=== PATIENT | male | born 2000 | race Caucasian/White ===

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

== ENCOUNTER 2019-11-29 16:34 | Emergency (ER) | payer OTHER ==
[~2019-11-29] VITALS: Ht 167.6 cm; Wt 40.8 kg
[2019-11-29 16:53] VITALS: BP_SYST 132
--- NOTE | 2019-11-29 16:55 | NUR ---
Patient triaged and placed in waiting room. VSS and patient appears in no acute distress at this time. Accompanied by mother , awaiting available bed, and MD notified of need for MSE.
--- NOTE | 2019-11-29 19:11 | NUR ---
Patient to ER bed H2 to gown for evaluation. Side rails up.
[2019-11-29] MEDS ORDERED: NACL 0.9% 1,000 ML IV ONE (19:16)
[2019-11-29] MEDS ORDERED: KETOROLAC TROMETHAMINE 30 MG VIAL IVP ONE (19:30)
[2019-11-29 19:50] LABS: HEMATOCRIT 40.1 % (36-54); HEMOGLOBIN 13.1 g/dL (14.0-18.0); MEAN CORPUSCULAR HEMOGLOBIN 29 pg (27-31); MEAN CORPUSCULAR HGB CONC 33 % (32-36); MEAN CORPUSCULAR VOLUME 88 fL (79.0-98.0); PLATELET COUNT (AUTO) 586 K/uL (130-430); RED BLOOD CELL COUNT(AUTO) 4.58 MIL/uL (4.2-6.2); RED CELL DISTRIBUTION WIDTH 14.3 % (9.0-15.0); WHITE BLOOD COUNT (AUTO) 17.1 K/uL (4.5-11.0)
--- NOTE | 2019-11-29 20:00 | NUR ---
Dr. Branch bedside for pt eval
[2019-11-29 20:06] LABS: CALCIUM 8.9 mg/dL (8.4-11.0); CREATININE 0.92 mg/dL (0.55-1.30); POTASSIUM 3.8 mmol/L (3.5-5.1)
[2019-11-29 20:08] LABS: BAND % (MANUAL) 4 % (0-6); BASOPHILS % (MANUAL) 0 % (0-2); EOSINOPHILS % (MANUAL) 1 % (0-7); LYMPHOCYTES % (MANUAL) 15 % (20-46); MONOCYTES % (MANUAL) 3 % (0-11)
--- NOTE | 2019-11-29 20:10 | NUR ---
Pt BIB family to ED C/O acute onset of nonradiating, constant, and sharp chest wall pain since this morning. Patient states he has been loosing weight (~20lbs) despite no change in diet VSS no s/s of acute distress Resting on gurney rails up
[2019-11-29 20:11] LABS: ALBUMIN 3.5 g/dL (3.4-4.8); TOTAL BILIRUBIN 0.3 mg/dL (0.0-1.0)
[2019-11-29 20:20] LABS: BILIRUBIN,URINE NEGATIVE (NEGATIVE); BLOOD, URINE NEGATIVE (NEGATIVE); CLARITY/URINE SL CLOUDY (CLEAR); COLOR,URINE YELLOW (YELLOW); GLUCOSE,URINE NEGATIVE (NEGATIVE); KETONES,URINE NEGATIVE (NEGATIVE); LEUKOCYTE ESTERASE ,URINE NEGATIVE (NEGATIVE); NITRITE, URINE NEGATIVE (NEGATIVE); PROTEIN URINE NEGATIVE (NEGATIVE); UROBILINOGEN,URINE 0.2 (0.2-1.0)
--- NOTE | 2019-11-29 21:53 | NUR ---
Pt moved to bed 7
--- NOTE | 2019-11-29 22:18 | NUR ---
VSS NO S/S OF ACUTE DISTRESS RESTING ON GURNEY RAILS UP
[2019-11-29 23:10] VITALS: BP_SYST 132
--- NOTE | 2019-11-29 23:10 | NUR ---
Patient given written and verbal discharge instructions and verbalizes understanding. ER MD discussed with patient the results and treatment provided. Patient in stable condition. ID arm band removed. IV catheter removed intact and dressing applied no bleeding. Patient educated on pain management and to follow up with PMD. Pain Scale 0/10 Opportunity for questions provided and answered.
== END 2019-11-29 23:10 | disposition home or self-care (01) ==
LOC: SED 16:34
DX: F41.9 Anxiety disorder, unspecified (principal); R07.89 Other chest pain
CPT/HCPCS: 36415; 71045; 80053; 81003; 83605; 85007; 85027; 87040; 93005; 96374; 99284; J1885; J7030